=== PATIENT | male | born 1965 | race Caucasian/White ===

== ENCOUNTER 2017-04-12 11:26 | Emergency (ER) | payer OTHER ==
--- NOTE | 2017-04-12 12:09 | ERPHSYRPT ---
- History of Present Illness Time Seen by Provider: 04/12/17 12:06 Exam Limitations: no limitations Patient Subjective Stated Complaint: pt here attaching equipment to tractor and a peice of heavy steel fell on left foot today, pt co pain to top of foot Triage Nursing Assessment: pt alert, walked in on crutches.has swelling,redness and abrasion to top of foot ppp Physician History: The patient is a 52-year-old male with his family complaining that he dropped a piece of heavy equipment on his right mid foot about 1-1/2 hours ago. His foot is tender and swollen. It is hard for him to place his weight on it. He took ibuprofen 400 mg 4 arrival. He is broken that foot 2 times before. His past medical history significant for right foot fractures, hypertension, and depression. Method of Injury: direct blow Occurred: just prior to arrival Quality: constant (this at [place] with was at [place] segment t while) Severity of Pain-Max: moderate Severity of Pain-Current: moderate Lower Extremities Pain: foot: right Modifying Factors: Improves With: pain medication Associated Symptoms: none Allergies/Adverse Reactions: No Known Drug Allergies Allergy (Unverified 04/12/17 11:37) Home Medications: Lisinopril 10 mg [Zestril 10 MG] 10 mg DAILY 04/12/17 [History] Losartan Potassium 50 mg [Cozaar 50 MG] 50 mg PO DAILY 04/12/17 [History] Hx Tetanus, Diphtheria Vaccination/Date Given: No Hx Influenza Vaccination/Date Given: No Hx Pneumococcal Vaccination/Date Given: Yes Immunizations Up to Date: Yes - Review of Systems Constitutional: No Fever, No Chills Eyes: No Symptoms Ears, Nose, & Throat: No Symptoms Respiratory: No Cough, No Dyspnea Cardiac: No Chest Pain, No Edema, No Syncope Abdominal/Gastrointestinal: No Abdominal Pain, No Nausea, No Vomiting, No Diarrhea Genitourinary Symptoms: No Dysuria Musculoskeletal: Injury Skin: No Rash Neurological: No Dizziness, No Focal Weakness, No Sensory Changes Psychological: No Symptoms Endocrine: No Symptoms Hematologic/Lymphatic: No Symptoms Immunological/Allergic: No Symptoms All Other Systems: Reviewed and Negative - Past Medical History Pertinent Past Medical History: Yes Cardiac History: Hypertension - Past Surgical History Past Surgical History: Yes Musculoskeletal: Orthopedic Surgery Other Surgical History: right foot and leg - Social History Smoking Status: Never smoker Exposure to second hand smoke: No Drug Use: none Patient Lives Alone: No - Nursing Vital Signs Nursing Vital Signs: Initial Vital Signs Temperature 97.4 F 04/12/17 11:32 Pulse Rate 61 04/12/17 11:32 Respiratory Rate 16 04/12/17 11:32 Blood Pressure 137/96 04/12/17 11:32 O2 Sat by Pulse Oximetry 96 04/12/17 11:32 Pain Scale Pain Intensity 5 - Physical Exam General Appearance: mild distress Eyes, Ears, Nose, Throat Exam: moist mucous membranes Neck Exam: non-tender, supple Cardiovascular/Respiratory Exam: chest non-tender, normal breath sounds, regular rate/rhythm, no respiratory distress Gastrointestinal/Abdominal Exam: non-tender, guarding Back Exam: normal inspection, No vertebral tenderness Hips Exam: bilateral: non-tender, normal inspection Legs Exam: bilateral leg: non-tender, normal inspection Knees Exam: bilateral knee: non-tender, normal inspection Ankle Exam: bilateral ankle: non-tender, normal inspection Foot Exam: right foot: abrasions/lacerations, limited range of motion, soft tissue tenderness, swelling, left foot: non-tender, normal inspection Neuro/Tendon Exam: normal sensation, normal motor functions Mental Status Exam: alert, oriented x 3, cooperative Skin Exam: warm, dry, abrasion (right mid foot) SpO2 Interpretation: normal SpO2: 96 Oxygen Delivery: Room Air - Radiology Exams Chest X-ray Interpretation: Teleradiologist Report, Negative (per Dr Fox.) Ordered Tests: Active Orders 24 hr Category Date Time Status FOOT (MINIMUM 3 VIEWS) Stat Exams 04/12/17 12:05 Completed - Progress Counseled pt/family regarding: rad results - Departure Time of Disposition: 12:56 Departure Disposition: Home Clinical Impression: Contusion of right foot Condition: Stable Critical Care Time: No Referrals: MACK LOPEZ NP [Primary Care Provider] - Additional Instructions: You have a contusion of your right foot. You were given Toradol 60 mg by IM in the ER. Place ice on the area for 15 minutes 3 times a day for 2 or 3 days. Take Tylenol 1000 mg and ibuprofen 800 mg every 8 hours as needed. Follow-up as needed.
--- NOTE | 2017-04-12 12:46 | XRAY ---
Indication: Pain following injury. Comparison: None 3 nonweightbearing views of the right foot demonstrates tiny heel spur, mid foot soft tissue swelling, and old distal tibial fracture with intact orthopedic screws. No other bony, articular, or soft tissue abnormalities.
[2017-04-12] MEDS ORDERED: TORAdol 30 mg Injection IM ONE (12:56)
[2017-04-12] MEDS ORDERED: TORAdol 30 mg Injection ONE (13:00)
[2017-04-12 13:06] VITALS: BP 134/94; PULSE 56; O2SAT 98
== END 2017-04-12 13:18 | disposition home or self-care (01) ==
LOC: ED 11:26
DX: S90.31XA Contusion of right foot, initial encounter (principal); W20.8XXA Other cause of strike by thrown, projected or falling object, initial encounter
CPT/HCPCS: 73630; 99284; J1885

== ENCOUNTER 2017-05-31 18:56 | Emergency (ER) | payer OTHER ==
--- NOTE | 2017-05-31 19:59 | ERPHSYRPT ---
- History of Present Illness Time Seen by Provider: 05/31/17 19:48 Historian: patient, family Exam Limitations: no limitations Patient Subjective Stated Complaint: PT REPORTS CHEST TIGHTNESS SINCE WEDNESDAY, MORE INTENSE PAIN TONIGHT AT REST WITH RADIATION TO THE LEFT SHOULDER, ARM AND NECK. STATES HE GOT SHORT OF BREATH, AND FELT SWEATY. REPORTS PERIODS WHERE HIS HEART RACES FOR SHORT INTERVALS. Triage Nursing Assessment: PT IS AOX3, PUPILS PERRL, RESPS EASY AND NON LABORED , LUNG SOUNDS CLEAR THROUGHOUT ALL MC[place], RADIAL PULSES STRONG AND EQUAL, HEART SOUNDS STRONG AND REGULAR, CAP REFILL < 3 SECONDS. NO EDEMA APPRECIATED. CHEST TIGHTNESS WITH RADIATION TO THE LEFT SHOULDER AND ARM. PT SKIN IS CLAMMY TO TOUCH. Physician History: The patient is a 52-year-old male with his complaining of chest tightness that began suddenly 4 days ago and has continued. He also has pain in his left shoulder arm and neck. He's been short of breath since this began and has been nauseated. At time he's been sweaty. And until recently he has not been as active as he normally is. He resumed his normal activities about 4 days ago. His past medical history significant only for hypertension. Timing/Duration: day(s) (4) Activities at Onset: activity Quality: tightness Location: substernal (left) Chest Pain Radiation: jaw, neck, arm (left) Severity of Pain-Max: mild Severity of Pain-Current: none (Pt began feeling much better on drive to ER.) Modifying Factors: Improves With: nothing Associated Symptoms: nausea, palpitations, shortness of breath, diaphoresis, No vomiting Prior Chest Pain/Cardiac Workup: no prior chest pain Nitro Today/Relief: no nitro taken today Aspirin Treatment Today: no aspirin today Allergies/Adverse Reactions: No Known Drug Allergies Allergy (Verified 05/31/17 19:12) Home Medications: Lisinopril 10 mg [Zestril 10 MG] 10 mg DAILY 04/12/17 [History] Losartan Potassium 50 mg [Cozaar 50 MG] 50 mg PO DAILY 04/12/17 [History] Hx Tetanus, Diphtheria Vaccination/Date Given: No Hx Influenza Vaccination/Date Given: Yes Hx Pneumococcal Vaccination/Date Given: No Immunizations Up to Date: Yes - Review of Systems Constitutional: No Fever, No Chills Eyes: No Symptoms Ears, Nose, & Throat: No Symptoms Respiratory: Dyspnea Cardiac: Chest Pain, No Edema, No Syncope Abdominal/Gastrointestinal: Nausea, No Vomiting Genitourinary Symptoms: No Dysuria Musculoskeletal: No Back Pain, No Neck Pain Skin: No Rash Neurological: No Dizziness, No Focal Weakness, No Sensory Changes Psychological: No Symptoms Endocrine: No Symptoms Hematologic/Lymphatic: No Symptoms Immunological/Allergic: No Symptoms All Other Systems: Reviewed and Negative - Past Medical History Pertinent Past Medical History: Yes Cardiac History: Hypertension Musculoskeletal History: Arthritis Psycho-Social History: Depression - Past Surgical History Past Surgical History: Yes Musculoskeletal: Orthopedic Surgery Other Surgical History: right foot and leg - Social History Smoking Status: Never smoker Exposure to second hand smoke: No Drug Use: none Patient Lives Alone: No - Nursing Vital Signs Nursing Vital Signs: Initial Vital Signs Temperature 97.8 F 05/31/17 18:59 Pulse Rate 64 05/31/17 18:59 Respiratory Rate 18 05/31/17 18:59 Blood Pressure 156/104 05/31/17 18:59 O2 Sat by Pulse Oximetry 95 05/31/17 18:59 Pain Scale Pain Intensity 0 - Physical Exam General Appearance: no apparent distress, alert Eye Exam: PERRL/EOMI, eyes nml inspection Ears, Nose, Throat Exam: normal ENT inspection, moist mucous membranes Neck Exam: normal inspection, non-tender, supple, full range of motion Respiratory Exam: normal breath sounds, lungs clear, No chest tenderness, No respiratory distress Cardiovascular Exam: regular rate/rhythm, normal heart sounds Gastrointestinal/Abdomen Exam: soft, No tenderness, No mass Rectal Exam: not done Back Exam: normal inspection, No CVA tenderness, No vertebral tenderness Extremity Exam: normal inspection, normal range of motion Neurologic Exam: alert, oriented x 3, cooperative, normal mood/affect, sensation nml, No motor deficits Skin Exam: normal color, warm, dry SpO2 Interpretation: normal SpO2: 95 Oxygen Delivery: Room Air - Course EKG Interpreted by Me: RATE, Sinus Rhythm, NORMAL AXIS, NORMAL INTERVALS, NORMAL QRS, NORMAL ST-T - Radiology Exams Chest X-ray Interpretation: Interpreted by me, Negative (no comp) - CT Exams Chest CT Interpretation: Tele-radiologist Report (Per Dr Fox), No PE, Other ( splenomegaly, hiatal hernia, fatty liver, 5 mm nodule in RLL.) Ordered Tests: Active Orders 24 hr Category Date Time Status Rock Loader STAT Care 05/31/17 20:05 Active EKG-ER Only STAT Care 05/31/17 20:04 Active IV Insertion STAT Care 05/31/17 20:04 Active Pulse Oximetry (ED) STAT Care 05/31/17 20:04 Active CHEST 2 VIEWS (PA AND LAT) Stat Exams 05/31/17 20:04 Taken CHEST WITH CONTRAST [CT] Stat Exams 05/31/17 20:26 Taken CBC W DIFF Stat Lab 05/31/17 20:08 Completed CMP Stat Lab 05/31/17 20:08 Completed D-DIMER QUANTITATION Stat Lab 05/31/17 20:08 Completed NT PRO BNP Stat Lab 05/31/17 20:08 Completed PROTIME WITH INR Stat Lab 05/31/17 20:08 Completed PTT Stat Lab 05/31/17 20:08 Completed TROPONIN Q3H Lab 05/31/17 20:08 Completed TROPONIN Q3H Lab 05/31/17 23:15 Ordered TROPONIN Q3H Lab 06/01/17 02:15 Ordered TROPONIN Q3H Lab 06/01/17 05:15 Ordered TROPONIN Q3H Lab 06/01/17 08:15 Ordered Medication Summary Discontinued Medications Generic Name Dose Route Start Last Admin Trade Name Freq PRN Reason Stop Dose Admin Aspirin 324 mg 05/31/17 20:04 05/31/17 20:11 Baby Aspirin 81 Mg Chew PO 05/31/17 20:05 324 mg STAT ONE Administration Aspirin Confirm 05/31/17 20:10 Baby Aspirin 81 Mg Chew Administered 05/31/17 20:11 Dose 324 mg .ROUTE .STK-MED ONE Lab/Rad Data: Laboratory Result Diagrams 05/31/17 20:08 05/31/17 20:08 Laboratory Results 05/31/17 05/31/17 05/31/17 Range/Units 20:08 20:08 20:08 WBC (4.0-10.5) K/mm3 RBC (4.1-5.6) M/mm3 Hgb (12.5-18.0) gm/dl Hct (42-50) % MCV (78-100) fl MCH (26-32) pg MCHC (32-36) g/dl RDW (11.5-14.0) % Plt Count (150-450) K/mm3 MPV (6-9.5) fl Gran % (36.0-66.0) % Lymphocytes % (24.0-44.0) % Monocytes % (0.0-12.0) % Eosinophils % (0.00-5.0) % Basophils % (0.0-0.4) % Basophils # (0-0.4) INR 1.02 (0.8-3.0) APTT 29.9 (24.1-36.1) SECONDS D-Dimer 514 H* (0-500) ng/mL Sodium 143 (136-145) mEq/L Potassium 4.0 (3.5-5.1) mEq/L Chloride 106 (98-107) mEq/L Carbon Dioxide 24.9 (21-32) mEq/L Anion Gap 15.7 H (5-15) MEQ/L BUN 19 (9-20) mg/dL Creatinine 1.20 (0.55-1.30) mg/dl Estimated GFR > 60 ML/MIN Glucose 115 H (70-110) MG/DL Calcium 9.3 (8.5-10.1) mg/dL Total Bilirubin 0.30 (0.2-1.0) mg/dL AST 26 (15-37) U/L ALT 64 (12-78) U/L Alkaline Phosphatase 77 (46-116) U/L Troponin I < 0.017 (0.000-0.056) ng/ml NT-Pro-B Natriuret Pep 94 (0-125) pg/ml Serum Total Protein 7.8 (6.4-8.2) gm/dL Albumin 4.3 (3.4-5.0) g/dL 05/31/17 Range/Units 20:08 WBC 6.2 (4.0-10.5) K/mm3 RBC 4.94 (4.1-5.6) M/mm3 Hgb 15.4 (12.5-18.0) gm/dl Hct 44.2 (42-50) % MCV 89.5 (78-100) fl MCH 31.2 (26-32) pg MCHC 34.8 (32-36) g/dl RDW 13.3 (11.5-14.0) % Plt Count 212 (150-450) K/mm3 MPV 10.6 H (6-9.5) fl Gran % 59.1 (36.0-66.0) % Lymphocytes % 29.7 (24.0-44.0) % Monocytes % 8.6 (0.0-12.0) % Eosinophils % 2.1 (0.00-5.0) % Basophils % 0.5 (0.0-0.4) % Basophils # 0.03 (0-0.4) INR (0.8-3.0) APTT (24.1-36.1) SECONDS D-Dimer (0-500) ng/mL Sodium (136-145) mEq/L Potassium (3.5-5.1) mEq/L Chloride (98-107) mEq/L Carbon Dioxide (21-32) mEq/L Anion Gap (5-15) MEQ/L BUN (9-20) mg/dL Creatinine (0.55-1.30) mg/dl Estimated GFR ML/MIN Glucose (70-110) MG/DL Calcium (8.5-10.1) mg/dL Total Bilirubin (0.2-1.0) mg/dL AST (15-37) U/L ALT (12-78) U/L Alkaline Phosphatase (46-116) U/L Troponin I (0.000-0.056) ng/ml NT-Pro-B Natriuret Pep (0-125) pg/ml Serum Total Protein (6.4-8.2) gm/dL Albumin (3.4-5.0) g/dL - Progress Progress: improved Counseled pt/family regarding: lab results, diagnosis, need for follow-up, rad results - Departure Time of Disposition: 22:06 Departure Disposition: Home Clinical Impression: Chest tightness, Pulmonary nodule seen on imaging study Condition: Stable Critical Care Time: No Referrals: MACK LOPEZ NP [Primary Care Provider] - Additional Instructions: You have chest tightness. You were given aspirin 324 mg orally in the ER. Your chest CT did not find any pulmonary emboli. However, there is a 5 mm noncalcified nodule in the right lower lobe that was seen on the CT scan. Please follow-up with your primary medical doctor for further evaluation and information.
[2017-05-31] MEDS ORDERED: BABY ASPIRIN 81 MG CHEW PO ONE (20:04)
[2017-05-31] MEDS ORDERED: BABY ASPIRIN 81 MG CHEW ONE (20:10)
[2017-05-31 20:14] LABS: BASOPHIL % 0.5 % (0.0-0.4); Eosinophil % 2.1 % (0.00-5.0); Granulocytes % 59.1 % (36.0-66.0); INR 1.02 (0.8-3.0); Lymphocytes % 29.7 % (24.0-44.0); Mean Cell Volume 89.5 fl (78-100); Mean Corpuscular Hemoglobin 31.2 pg (26-32); Mean Platelet Volume 10.6 fl (6-9.5); Monocytes % 8.6 % (0.0-12.0); PROTIME 11.3 SECONDS (8.83-12.87); Platelet Count 212 K/mm3 (150-450); Red Blood Count 4.94 M/mm3 (4.1-5.6); Red Cell Distribution Width 13.3 % (11.5-14.0); White Blood Count 6.2 K/mm3 (4.0-10.5)
[2017-05-31 20:17] LABS: PTT 29.9 SECONDS (24.1-36.1)
[2017-05-31 20:27] LABS: ALBUMIN 4.3 g/dL (3.4-5.0); ALKALINE PHOSPHATASE 77 U/L (46-116); ANION GAP 15.7 MEQ/L (5-15); BLOOD UREA NITROGEN 19 mg/dL (9-20); CHLORIDE 106 mEq/L (98-107); Carbon Dioxide 24.9 mEq/L (21-32); Glucose 115 MG/DL (70-110); SGOT/AST 26 U/L (15-37); SGPT/ALT 64 U/L (12-78); SODIUM 143 mEq/L (136-145); Total Protein 7.8 gm/dL (6.4-8.2)
[2017-05-31 22:08] VITALS: O2SAT 95
[2017-05-31 22:12] VITALS: BP 172/98; PULSE 62
--- NOTE | 2017-06-01 08:55 | XRAY ---
Indication: Chest pressure and left arm pain. Elevated d-dimer. Multiple contiguous axial images obtained through the chest using 80 cc Isovue 370 contrast and PE protocol. Comparison: None There is satisfactory opacification of the pulmonary arteries including lobar and segmental branches. No filling defect or pulmonary embolus. Heart is not enlarged. Aorta is normal in course and caliber. No pathologic mediastinal/hilar lymphadenopathy. Small hiatal hernia. Examination of the lung parenchyma demonstrates a 5 mm noncalcified nodule in the peripheral right lower lobe. Minimal right middle and bilateral lower lobe fibrosis/scarring. No infiltrate, consolidation, or effusion. Bony thorax intact with minimal degenerative spurring throughout the spine. Limited upper abdomen demonstrates fatty liver and 14 cm splenomegaly. Impression: 1. Negative pulmonary embolus. No acute cardiopulmonary abnormalities. 2. Right lower lobe indeterminant 5 mm noncalcified nodule. Comparison to older studies would be of benefit if performed elsewhere. Otherwise recommend follow-up per Fleischner guidelines. 3. Incidental fatty liver and splenomegaly. CT DI 22.22
--- NOTE | 2017-06-01 08:57 | XRAY ---
Indication: Chest tightness. Comparison: None PA/lateral chest demonstrates minimal lingular fibrosis/scarring. No focal infiltrate, consolidation, or large effusion. Heart is not enlarged. Bony thorax intact. Impression: Nonacute chest.
== END 2017-05-31 22:20 | disposition home or self-care (01) ==
LOC: ED 18:56
DX: R07.89 Other chest pain (principal); R91.1 Solitary pulmonary nodule; R91.8 Other nonspecific abnormal finding of lung field
CPT/HCPCS: 36000; 36415; 71020; 71260; 80053; 83880; 84484; 85025; 85379; 85610; 85730; 93005; 93041; 99284; A9270-GY